=== PATIENT | female | born 2005 | race Two or more races ===

== ENCOUNTER 2025-08-13 13:37 | Outpatient (AMB) | payer BC, SELFPAY ==
--- OUTSIDE RECORDS SUMMARY | 2025-08-13 13:51 | XMS_ITS | Encounter Summary ---
Author Organization [facility] Address [address] [place] [address] Phone Care Team Providers Care Still Tender Name Role Phone Denae Landis MD Primary Care Provider [phone] Encounter Details Date Type Department Care Team (Late st Contact Info) Description 07/22/2025 Results Follow-Up [facility] [address] [address] Paige Galo [place] [address] [place] [address] Social History Tobacco Use Types Packs/Day Years Used Date Smoking Tobacco: Never Smokeless Tobacco: Never Alcohol Use Standard Drinks/Week Comments Yes 0 (1 standard drink = 0.6 oz pur e alcohol) occasionally Hunger/Food Answer Date Recorded In the last 12 months, did y ou or your family ever eat less than you felt you should because there wasn't enough money for food? No 07/15/2025 Stable Housing Answer Date Recorded Are you worried that in the next 2 months you may not have stable housing? No 07/15/2025 Transportation Concerns Answer Date Rec orded In the last 12 months, have you or your family ever had to go without healthcare because you didn't have a way to get there? No 07/15/2025 Hazards in Home Answer Date Recorded Think about the place you li ve. Do you have problems with any of the following? Pests (mice or roaches), mold, no/not working smoke detectors, water leaks, no window guards. No 2024 Financing Utilities Answer Date Recorde d In the last 12 months, has t he electric, gas, oil, or water company threatened to shut off your services in your home? No 07/15/2025 Safety at Home Answer Date Recorded Are you or your family worried about feeling saf e in your home? No 07/15/2025 Outside Support Answer Date Recorded Do you feel that you need mo re support from other people or programs to help you care for yourself or your family? No 07/15/2025 Understanding Health Concerns Answer Da te Recorded Do you need help understandi ng your or your child's healthcare needs (diagnosis, medications, plan, etc.)? No 07/15/2025 Financing Health Concerns Answer Date R ecorded In the last 12 months, was t here a time when your child needed to see a doctor or get medications or supplies but could not because of cost? No 07/15/2025 Missing School or Work Answer Date Rich rded Did you or your child miss s chool or work because of a health problem that could have been avoided? No 07/15/2025 Child Education Answer Date Recorded Do you have concerns about y our/your child's learning or behavior in school, preschool, or daycare? No 07/15/2025 Comments No Sex and Gender Information Value Date Recorded Sex Assigned at Female 09/03/2023 11:21 AM EDT Legal Sex Female 5:10 PM EDT Gender Identity Female 06/29/2020 8:44 AM EDT Sexual Orientation Straight 09/03/2023 11 :21 AM EDT documented as of this encounter Plan of Treatment Not on file documented as of this encounter Visit Diagnoses Not on filedocumented in this encounter Care Teams Still Tender Relationship Specialty Start Date End Date Denae Landis MD [address] [place] [address] CATHERINE Carey [address] PCP - General 06/21/17 documented as of this encounter
--- OUTSIDE RECORDS SUMMARY | 2025-08-13 13:51 | XMS_ITS | Encounter Summary ---
Author Organization [facility] Address [address] [place] [address] Phone Care Team Providers Care Press Machine Operator Name Role Phone Denae Landis MD Primary Care Provider [phone] Encounter Details Date Type Department Care Team (Late st Contact Info) Description 02/16/2013 Documentation [facility] [place] [address] [place] [address] Family Medicine, Physician [address] [place], [place] [phone] Social History Tobacco Use Types Packs/Day Years Used Date Smoking Tobacco: Never Assessed Comments Unknown Sex and Gender Information Value Date Recorded Sex Assigned at Female 09/03/2023 11:21 AM EDT Legal Sex Female 5:10 PM EDT Gender Identity Female 06/29/2020 8:44 AM EDT Sexual Orientation Straight 09/03/2023 11 :21 AM EDT documented as of this encounter Plan of Treatment Not on file documented as of this encounter Visit Diagnoses Not on filedocumented in this encounter Care Teams Press Machine Operator Relationship Specialty Start Date End Date Denae Landis MD [address] [place] [address] CATHERINE Carey [address] PCP - General 06/21/17 documented as of this encounter
--- OUTSIDE RECORDS SUMMARY | 2025-08-13 13:51 | XMS_ITS | Encounter Summary ---
Author Organization [facility] Address [address] [place], [place] [id number] Phone Care Team Providers Care Project Administrative Assistant Name Role Phone Denae Landis MD Primary Care Provider [phone] Reason for Visit * Reason Onset Date Comments Laceration 08/13/2025 Encounter Details Date Type Department Care Team (Late st Contact Info) Description 08/13/2025 Telephone [facility] [address] [place] [address] Cristian Millard LPN [address] [place] [address] Laceration Social History Tobacco Use Types Packs/Day Years [...] t he electric, gas, oil, or water [employer] threatened to shut off your services in [...] AM EDT documented as of this encounter Miscellaneous Notes * Telephone Encounter - Cristian Millard LPN - 08/13/2025 1:09 PM EDT Pt is calling, she states that she cut her finger on a can and it hasn't stopped bleeding. She is unsure how long the cut is but says that it is deep. She washed it with soap and water and is applying pressure. Last Tdap was 08/30/16. Instructed pt to go to ER or urgent care as we don't do sutures here. documented in this encounter Plan of Treatment Not on file documented as of this encounter Visit Diagnoses Not on filedocumented in this encounter Care Teams Project Administrative Assistant Relationship Specialty Start Date End Date Denae Landis MD [address] [place] [address] CATHERINE Carey [id number] PCP - General 06/21/17 documented as of this encounter
--- OUTSIDE RECORDS SUMMARY | 2025-08-13 13:51 | XMS_ITS | Encounter Summary ---
Author Organization [facility] Address [address] [place] [address] Phone Care Team Providers Care Warp Bleaching Vat Tender Name Role Phone Denae Landis MD Primary Care Provider [phone] Encounter Details Date Type Department Care Team (Late st Contact Info) Description 07/03/2010 Documentation [facility] [place] [address] [place] [address] Family Medicine, Physician [address] [place], [place] [phone] Social History Tobacco Use Types Packs/Day Years [...] on filedocumented in this encounter Care Teams Warp Bleaching Vat Tender Relationship Specialty Start Date End Date Denae Landis MD [address] [place] [address] CATHERINE Carey [address] PCP - General 06/21/17 documented as of this encounter
--- OUTSIDE RECORDS SUMMARY | 2025-08-13 13:51 | XMS_ITS | Encounter Summary ---
Author Organization [facility] Address [address] [place] [address] Phone Care Team Providers Care Culinary Intern Name Role Phone Denae Landis MD Primary Care Provider [phone] Encounter Details Date Type Department Care Team (Late st Contact Info) Description 07/03/2010 Documentation [facility] Family Medicine [address] [place] [address] Family Medicine, Physician [address] [place], [place] [phone] Social History Tobacco Use Types Packs/Day Years [...] on filedocumented in this encounter Care Teams Culinary Intern Relationship Specialty Start Date End Date Denae Landis MD [address] [place] [address] CATHERINE Carey [address] PCP - General 06/21/17 documented as of this encounter
--- OUTSIDE RECORDS SUMMARY | 2025-08-13 13:51 | XMS_ITS | Encounter Summary ---
Author Organization [facility] Address [address] [place] [address] Phone Care Team Providers Care Bathing Suit Maker Name Role Phone Denae Landis MD Primary Care Provider [phone] Encounter Details Date Type Department Care Team (Late st Contact Info) Description 08/24/2011 Documentation [facility] [place] Family Medicine [address] [place] [address] Family Medicine, Physician [address] [place], [place] [phone] Social History Tobacco Use Types Packs/Day Years [...] on filedocumented in this encounter Care Teams Bathing Suit Maker Relationship Specialty Start Date End Date Denae Landis MD [address] [place] [address] CATHERINE Carey [address] PCP - General 06/21/17 documented as of this encounter
--- OUTSIDE RECORDS SUMMARY | 2025-08-13 13:51 | XMS_ITS | Encounter Summary ---
Author Organization [facility] Address [address] [place] [address] Phone Care Team Providers Care Claim Representative Name Role Phone Denae Landis MD Primary Care Provider [phone] Encounter Details Date Type Department Care Team (Late st Contact Info) Description 04/26/2016 Documentation [facility] [place] Family Medicine [address] [place] [address] Family Medicine, Physician [address] [place] [phone] Social History Tobacco Use Types Packs/Day Years [...] on filedocumented in this encounter Care Teams Claim Representative Relationship Specialty Start Date End Date Denae Landis MD [address] [place] [address] CATHERINE Carey [address] PCP - General 06/21/17 documented as of this encounter
--- OUTSIDE RECORDS SUMMARY | 2025-08-13 13:51 | XMS_ITS | Clinical Summary ---
Author Organization [facility] Address [address] [place] [address] Phone Care Team Providers Care Hand Cultivator Name Role Phone Denae Landis MD Primary Care Provider [phone] Denae Landis MD Unavailable [phone] Denae Landis MD Unavailable [phone] Medications * This document contains information received from the source organization and may not represent a complete record from that organization. sertraline (Zoloft) 25 mg tablet Dose: 25 mg, Dose Amount: 1 tab, PO, daily, Dispense Quantity: 30 tab, Refills: 1, Entered: 09/17/22 18:42:00 [facility]/pharmacy #[id number] 09/17/2022 Active Social History Tobacco Use Types Packs/Day Years Used Date Smoking Tobacco: Never Assessed Comments Unknown Sex and Gender Information Value Date Recorded Sex Assigned at Not on file Legal Sex Female 4:12 AM EDT Gender Identity Not on file Sexual Orientation Not on file Plan of Treatment Not on file Care Teams Hand Cultivator Relationship Specialty Start Date End Date Denae Landis MD [address] [place] [address] PCP - General 04/07/21 Denae Landis MD [address] [place] [address] PCP - Insurance PCP 04/07/21 Denae Landis MD [address] [place] [address] CATHERINE Carey [address] PCP - Clinical PCP 04/07/21
--- OUTSIDE RECORDS SUMMARY | 2025-08-13 13:51 | XMS_ITS | Encounter Summary ---
Author Organization [facility] Address [address] [place] [address] Phone Care Team Providers Care Business Editor Name Role Phone Denae Landis MD Primary Care Provider [phone] Encounter Details Date Type Department Care Team (Late st Contact Info) Description 04/08/2014 Documentation [facility] [place] Family Medicine [address] [place] [address] Family Medicine, Physician [address] [place], [place] [phone] Social History Tobacco Use Types Packs/Day Years [...] on filedocumented in this encounter Care Teams Business Editor Relationship Specialty Start Date End Date Denae Landis MD [address] [place] [address] CATHERINE Carey [address] PCP - General 06/21/17 documented as of this encounter
--- OUTSIDE RECORDS SUMMARY | 2025-08-13 13:51 | XMS_ITS | Encounter Summary ---
Author Organization [facility] Address [address] [place] [address] Phone Care Team Providers Care Basket Person Name Role Phone Denae Landis MD Primary Care Provider Encounter Details Date Type Department Care Team (Late st Contact Info) Description 07/03/2010 Documentation [facility] [place] Family Medicine [address] [place] [address] Family Medicine, Physician [address] [place], [place] [phone] Social History Tobacco Use Types Packs/Day Years [...] on filedocumented in this encounter Care Teams Basket Person Relationship Specialty Start Date End Date Denae Landis MD [address] [place] [address] CATHERINE Carey [address] PCP - General 06/21/17 documented as of this encounter
--- OUTSIDE RECORDS SUMMARY | 2025-08-13 13:51 | XMS_ITS | Encounter Summary ---
Author Organization [facility] Address [address] [place] [address] Phone Care Team Providers Care Rn Mds Name Role Phone Denae Landis MD Primary Care Provider [phone] Encounter Details Date Type Department Care Team (Late st Contact Info) Description 06/27/2017 Conversion Encounter [facility] [place] [address] [place] [address] Social History Tobacco Use Types Packs/Day Years [...] on filedocumented in this encounter Care Teams Rn Mds Relationship Specialty Start Date End Date Denae Landis MD [address] [place] [address] PCP - General 06/21/17 documented as of this encounter
--- OUTSIDE RECORDS SUMMARY | 2025-08-13 13:51 | XMS_ITS | Clinical Summary ---
Author Organization [facility] Address [address] [place] [id number] Phone Care Team Providers Care Ultrasound Applications Specialist Name Role Phone Denae Landis MD Primary Care Provider [phone] Allergies Active Allergy Reactions Criticality Noted Date Comments Apple Juice 10/03/2020 Positive allergy testing Food Anaphylaxis High 09/12/2017 Carrot--had scratchy throat and blood blisters on lips; no difficulty breathing or swallowing [place] Flavoring Agent (Non-Screening) 10/03/2020 Oral allergy syndrome Medications EPINEPHrine 0.3 MG/0.3ML injection syringeIndications :Allergic reaction to food, sequela Inject into muscle immediately for signs of anaphylaxis AND call 911. Repeat if symptoms worsen/recur or if uncertain medicine was given 2 each 1 02/14/20 23 Active Additional Information Patient not taking.Reported on 04/25/2024 norgestimate-ethin yl estradiol 0.25-35 MG-MCG per tablet 12/29/19 24 Active cetirizine (ZyrTEC Allergy) 10 MG tablet Take 10 mg by mouth. 01/28/20 25 Active Montelukast Sodium (SINGULAIR PO) Take by mouth. 01/28/20 25 Active cetirizine 10 MG tabletIndications: Seasonal allergic rhinitis, unspecified trigger Take 1 tablet (10 mg total) by mouth daily. 90 tablet 1 02/14/20 23 025 Discontinu ed(Duplica te order) montelukast (Singulair) 10 MG tabletIndications: Mild persistent asthma without complication Take 1 tablet (10 mg total) by mouth nightly. 90 tablet 1 02/14/20 23 025 Discontinu ed(Duplica te order) montelukast 4 MG chewable tablet TAKE 1 TABLET BY MOUTH EVERYDAY AT BEDTIME 02/04/20 24 025 Discontinu ed(Duplica te order) ibuprofen 600 MG tablet TAKE 1 TABLET BY MOUTH EVERY 6 TO 8 HOURS NEEDED 11/16/19 25 025 Discontinu ed(Therapy completed) ibuprofen 800 MG tablet TAKE 1 TABLET (800 MG TOTAL) BY MOUTH EVERY 8 HOURS NEEDED FOR MILD OR MODERATE PAIN 05/05/20 25 025 Discontinu ed(Therapy completed) ondansetron ODT [address] 1 TABLET (4 MG TOTAL) UNDER THE TONGUE EVERY 8 (EIGHT) HOURS IF NEEDED FOR NAUSEA OR VOMITING. 05/05/20 25 025 Discontinu ed(Therapy completed) azithromycin 250 MG tabletIndications: Pneumonia of right lower lobe due to infectious organism Take 2 tablets (500 mg total) by mouth daily for 1 day, THEN 1 tablet (250 mg total) daily for 4 days. 6 tablet 07/22/20 Active Problems Problem Noted Date Diagnosed Date Paresthesia of right arm 05/31/2025 Assessment & Plan (05/31/2025 5:12 PM EDT): Suspect irritation of nerve from traumatic blood draw. Discussed sx relief; return to office if new sx develop or if sensation does not resolve on its own over the next 2-3 weeks. Allergic reaction to food 09/25/2018 Overview (09/28/2019): Has epi pen; avoids carrots Wears glasses 09/16/2017 Overview (09/28/2019): Has contacts and follow up planned in November but given discrepancy today mom will call Assessment & Plan (03/08/2022 10:37 AM EDT): Has appointment coming up soon for new rx Assessment & Plan (08/21/2018 9:02 AM EDT): Has another appt coming up end of the year and will likely upgrade glasses then; has contacts which are more updated Rx Assessment & Plan (09/16/2017 2:19 PM EST): Advised to follow up with eye doctor as soon as possible since its been awhile and poor eyesight in one eye Mild intermittent asthma without complication Overview (09/28/2019): Uses preventive meds for allergies and asthma during spring and fall but not summer or winter Assessment & Plan (07/15/2025 8:41 AM EDT): On preventive meds but just for allergies; no asthma symptoms for years; does not have an inhaler--hasn't had for years Assessment & Plan (09/03/2023 10:43 AM EDT): Taking singulair 10 mg daily during spring and fall only; hasn't had problems with asthma in awhile but singulair really helps her allergies Assessment & Plan (03/08/2022 10:36 AM EDT): Doing well on singulair and zyrtec; no changes Assessment & Plan (03/27/2021 8:37 AM EDT): Doing very well on montelukast and zyrtec; has appointment tomorrow with clearing hand for follow up ; hasn't needed albuterol in a couple of years Assessment & Plan (10/03/2020 1:30 PM EST): Taking monelukast, cetirizine and Flonase; hasn't needed inhaler in over a year Assessment & Plan (07/22/2020 8:30 AM EDT): Has been doing very well over quarantine; will restart zyrtec and singulair now since fall is starting; follow up if any difficulties Assessment & Plan (01/22/2020 11:27 AM EDT): Spring is the worst time for her; didn't need any meds over the fall 2018 this year; no need for rescue meds at all; so recommended starting zyrtec, flonase and singulair daily now; then start flovent IF gets a cough or concerns Assessment & Plan (09/28/2019 4:35 PM EST): Takes flovent and singulair during fall and spring so off now and doing well; will restart those 2 and allergy meds come December to be prepared for the spring Assessment & Plan (09/18/2019 11:34 AM EST): Stable; no issues right now Assessment & Plan (03/05/2019 4:40 PM EDT): Taking montelukast, zyrtec and flonase; will restart patanol soon ; doing well Assessment & Plan (11/24/2018 1:33 PM EST): Doing well on Singulair and Zyrtec; Restart Flonase mid-january; follow up here in February; consider flovent at that time Assessment & Plan (08/21/2018 12:04 PM EDT): Has been doing well off Flovent and just taking allergy meds and Singulair So would continue all 3 for now --Flonase, Zyrtec and Singulair Once allergy season/fall is over, could gradually discontinue allergy meds and see how she does Follow up in 3 months to recheck ADHD, but also check her asthma Assessment & Plan (12/12/2017 8:23 AM EST): Restart Flovent if coughing returns in the spring with her allergies despite using allergy meds Assessment & Plan (09/16/2017 1:58 PM EST): Still taking Flovent everyday and doing well; better than before; seen in August and restarted on flovent; hasn't needed rescue inhaler Attention deficit hyperactiv ity disorder (ADHD), combined type 06/27/2012 Assessment & Plan (03/27/2021 8:36 AM EDT): Reports school is going well; just started back in person so she will let me know if she wants to consider restarting medication Assessment & Plan (10/04/2020 8:36 AM EST): Stopped the Vyvanse because it was helping her stay focused but was worse for her appetite Off all meds; school could be better; a lot of struggle to stay focused; had tried concerta years ago with side effects; adderall and vyvanse were tried with significant side effects; will try strattera (wasn't covered last year but will try again); if not would then consider guanfacine; advised follow up in 1-2 months but asked mom to call me next week with update since just starting at the first starting dose of atomoxetine; if doing ok next week, would then go up to the full dose Assessment & Plan (08/01/2020 4:43 PM EDT): Discussed options with Nika and her mom by zoom meeting; don't want to use Adderall XR because it decreased her appetite and led to body image issues; so will try Vyvanse 30 mg daily and see if this will help her symptoms but not affect her appetite; to call me jackie if any problems; recheck in 1 month; if sees nothing helping in the next 2 weeks, mom can call and I'll increase her to 40 mg Assessment & Plan (07/22/2020 8:29 AM EDT): Off all meds for now; didn't like how much the stimulants affected her weight; feels better at her current weight; didn't do well on guanfacine either; hopefully doing remote learning will be easier to stay on task; if she needs to consider something further, perhaps atomoxetine will be helpful; she will let me know Assessment & Plan (09/28/2019 4:34 PM EST): Doing ok on Adderall XR 5 mg daily but no effect on her focusing; eats okay on it but not helping focusing; so will add guanfacine 1 mg ER for now; mom to call in a week and will increase by 1 mg ER each week until desired effect; target range for her is 3-6 mg total Assessment & Plan (09/21/2019 4:22 PM EST): Still getting very poor appetite with 10 mg addereall XR; so agree with decreasing to 5 mg adderall XR for now; if doing ok on that dose but inadequate for her symptom control, mom will call me in a week and I will add on guanfacine ER 1 mg daily to start; follow up at her PE in about 2 weeks Assessment & Plan (09/11/2019 12:10 PM EDT): Reviewed issues at length; not having good effects with the Adderall XR--feels too many side effects; had tried Concerta in the past and did not agree with her at all So reviewed options; will treat with strattera But also had her and mom fill out scared form and then reassessed; see below Assessment & Plan (03/06/2019 4:59 PM EDT): Taking adderall xr 15 mg daily; 7 days a week ecept school breaks; doing very well; taking honor classes next year! Continue same and follow up at in August Assessment & Plan (11/24/2018 1:33 PM EST): Doing well with current dosing; continue same Adderall XR 15 mg daily; recheck 3 months; mom's gerson shows pretty good control; will send in the teacher one Assessment & Plan (08/21/2018 8:54 AM EDT): Still taking Adderall XR 15 mg 7 days a week and doing fine; keeps her focused well; no ill effects per Nika Assessment & Plan (12/12/2017 8:22 AM EST): Doing very well on Adderall XR 15 mg now--increased a couple of months ago and doing better on higher dose Lost 2 lbs but overall is doing well and has had good growth over the year Follow up in 3-6 months depending on how she's doing; mom will keep track Assessment & Plan (09/16/2017 2:13 PM EST): suboptimal control on current dose of 10mg, so will increase Adderall XR to 15 mg daily Call me with any concerns Otherwise follow up in 2 months for recheck Allergic rhinitis 04/30/2011 Assessment & Plan (07/15/2025 8:41 AM EDT): Takes singulair and zyrtec seasonally; seen by clearing hand Assessment & Plan (09/03/2023 10:43 AM EDT): Takes zyrtec and singulair daily seasonally spring and fall Assessment & Plan (12/06/2022 9:28 AM EST): Not on cetirizine or montelukast right now; just uses seasonally Assessment & Plan (10/03/2020 1:34 PM EST): Saw clearing hand-had testing done-found to have allergies to carrots, apples, peaches; and egg/milk possibly -so going for blood work but wondered if those 2 (egg/milk) were false positive; a lot of environmental allergens too; will follow up with JOSEPHINE in 6 months Assessment & Plan (08/21/2018 8:54 AM EDT): Still taking Flonase and Zyrtec and Singulair; but still some runny nose Recommended Zyrtec in the morning and then extra dose of Benadryl at night Assessment & Plan (12/12/2017 8:22 AM EST): Plans to restart nasal spray, antihistamine and allergy eye drops in the spring Assessment & Plan (09/16/2017 1:58 PM EST): Still taking flonase; zyrtec and patanol seasonally Resolved Problems Problem Noted Date Diagnosed Date Resolved Date Hip pain, chronic, right 09/03/202302/2025 Assessment & Plan (09/03/2023 11:00 AM EDT): Really hip popping on right side for years but then causes pain for a couple of days after it happens; will start with xray to evaluate hip joint; if continues, will send to ortho for evaluation Gastroesophageal reflux dise ase without esophagitis 12/06/2022 09/03/2023 Assessment & Plan (12/06/2022 9:28 AM EST): Symptoms she describes certainly seem typical for acid reflux; recommended avoidance of certain foods and drinks and avoid eating late at night; would recommend pepcid 20 mg bid for 2 weeks; follow up if not improving Marijuana use 07/12/2022 09/03/2023 Assessment & Plan (07/17/2022 5:54 PM EDT): Patient has been without any cannabis use x 1 week now. Very scared to use again after this experience with severe vomiting, abd pain, nausea after cannabis use. Would like to stay off it forever. Gave lots of encouragement re this new development and offered additional support. Assessment & Plan (07/12/2022 10:02 AM EDT): Strongly discouraged use and why; could be reason for her vomiting and nausea; says she plans to quit-last use was Saturday which I told her was good-to hopefully avoid going forward Panic attacks 07/12/2022 09/03/2023 Assessment & Plan (07/17/2022 5:56 PM EDT): Received some useful strategies in ER, and discussed a few more today. She will be seeking care - mother has numbers to call. Will also schedule follow up with PCP, Dr. Landis, to discuss. Assessment & Plan (07/12/2022 10:07 AM EDT): Describes yesterday having what sounds like a panic attack; asked about anxiety med-advised I don't treat with prn anxiety meds; that I recommend appointment with a therapist; she says she will consider that; I gave her the handout on anxiety to review from [facility];advised to try to increase exercise and reviewed ways to get her to improve her nutrition; obviously she didn't feel well this week because of the N/V and then now today with diarrhea (which is likely from not eating all week); so reviewed suggestions to help get her eating back to normal/types of foods/hydration/etc; can consider daily preventive med in the future for anxiety if these measures do not help; patient and dad in agreement Current episode of major dep ressive disorder without prior episode 10/17/2020 03/08/2022 Depressed mood 06/27/2020 03/08/2022 Overview (06/27/2020): 06/27/2020 (age 15 yr 0 mo): reports poor self esteem, difficulty with relationship with father. + Hx cutting x 1 last year, none since. . Vague SI, has thought about taking pills in the recent past. No current SI. PHQ9 22, GAD7 14 Assessment & Plan (10/04/2020 8:34 AM EST): Overall seems to be doing better; reports feeling a bit brighter; therapist really helping her Assessment & Plan (07/22/2020 8:28 AM EDT): Reports emotions are stable; no major change; started working with therapist and feels that will be helpful; denies darker thoughts; does not want any medication right now; wants to continue to work with therapist; will let me know if anything changes Assessment & Plan (06/27/2020 3:45 PM EDT): 06/27/2020 (age 15 yr 0 mo): contracts for safety, discussed with mother. Has appt with Jaylan in 2 days. Follow up with Dr. Landis as soon as she is available. May consider medication in the future. Anxiety disorder, unspecified 09/04/2019 03/08/2022 Assessment & Plan (03/27/2021 8:39 AM EDT): Reports feeling ok; occ symptoms but not a lot; unsure if she wants to restart with a therapist or not; unsure if she wants medication or not; told mom and patient that mcpap Dr. Mills recommended combo of Adderall and Remeron; of course I prescribe Adderall but not Remeron. So if she wants to use those medications, which I fully support, I would just need to hook her up with a psychiatrist (which I told her I can give her the # for [facility] for [facility]); mom will let me know if she wants me to either give her info about [facility], if she wants me to ask Dr. Brush to call her (she was the previous therapist who saw her), or if she wants me to have [facility] try to call her Assessment & Plan (10/03/2020 1:52 PM EST): Still seeing therapist and going very well Assessment & Plan (09/28/2019 6:01 PM EST): Has appointment next week with therapist here Assessment & Plan (09/21/2019 4:21 PM EST): Scared screen still markedly positive; has appointment coming up with therapist; hope for some improvement with that change/plan Assessment & Plan (09/11/2019 12:11 PM EDT): Scared form positive--42--certainly suggests comorbidity of anxiety along with adhd; discussed treatment--mom will make calls to get her back into therapy and let me know if she's having trouble with this Recheck in 3 weeks to discuss changes/new med for adhd and see how she's doing Acne vulgaris 03/05/2019 03/08/2022 Encounters Date Type Department Care Team Description 08/13/2025 Telephone [facility] [address] [place] [address] Cristian Millard LPN Laceration 07/22/2025 9:15 AM EDT Office Visit [facility] [address] [place] [address] Delia Rivera MD Pneumonia of right lower lobe due to infectious organism (Primary Dx); Encounter for laboratory testing for COVID-19 virus 07/22/2025 Results Follow-Up [facility] [address] [place] [address] Paige Galo MA 07/21/2025 Telephone [facility] [address] [place] [address] Castro Moctezuma RN Cough 07/20/2025 Results Follow-Up [address] [address] Denae Landis MD 07/15/2025 8:15 AM EDT Office Visit [address] [address] Denae Landis MD Well adult exam (Primary Dx); Need for vaccination; BMI 22.0-22.9, adult; Encounter for screening examination for chlamydial infection; Encounter for screening examination for sexually transmitted disease; Dietary counseling and surveillance; Exercise counseling; Mild intermittent asthma without complication; Seasonal allergic rhinitis, unspecified trigger; Attention deficit hyperactivity disorder (ADHD), combined type 06/01/2025 Results Follow-Up [address] [address] Paige Galo MA 05/31/2025 2:30 PM EDT Office Visit [address] [address] Elana Ward NP Pharyngitis, unspecified etiology (Primary Dx); Paresthesia of right arm 05/19/[address] [address] Kiya Lee [place] 20 year old letter sent. from Last 3 Months Immunizations Immunization Administration Dates Next Due COVID-19 Pfizer, nabeel-sucros e, 12+ years 03/08/2022 DTaP / Hep B / IPV 2005,2005, 005 DTaP 5 06/28/2009,12/27/2006 HPV Vaccine 9 Valent 03/25/2017,08/30/2016 Hep A, ped/adol 07/15/2007,12/27/2006 Hep B, ped/adol 2005 Hib (HbOC) 2005 Hib (PRP-T) 09/24/2006,2005,2005 IPV 06/28/2009 Influenza Split 08/27/2013,08/01/2012,08/31/2011 Influenza, injectable, quadrivalent 08/30/2016,1 Influenza, injectable, quadr ivalent, preservative free 09/03/2023,10/03/2022,09/09/2021,07/22,09/04/2019,08/21/2018,08/28/2017 ,08/24/2014 Influenza, injectable, trivalent 009,08/12/2008,08/14/2007,09/24,2005 Influenza, injectable, triva lent, preservative free 07/15/2025,09/18/2024 Influenza, intranasal, trivalent 08/03/2010,06/12 MMR 06/28/2009,06/28/2006 Meningococcal B Trumenba 07/15/2025,09/03/2023 Meningococcal Conj (Menactra) MCV4P 03/08/2022,1 Pneumococcal Conjugate 09/24/2006,2005,2005,08/30 Tdap 08/30/2016 Varicella 06/28/2009,06/28/2006 Family History Medical History Relation Name Comments Hyperlipidemia Mother Camille Obesity Mother Camille Heart disease Other Prostate cancer Other Thyroid disease Other Relation Name Status Comments Father Greg Alive Mother Camille Alive Mother: Migrain es, Hyperlipidemia, Obesity Other No family histo ry of Seizure disorder, No family history of Thrombophilia, Family history of Migraines, No family history of Heart disease, No family history of Strabismus, Family history of Cancer, lung, No family history of Developmental dislocation of hip, No family history of Diabetes mellitus, Family history of Asthma, Family history of Hyperlipidemia, No family history of *Heart Disease, No family history of *Sudden /NV under 55, Family history of ADD/ADHD, Family history of *Dental caries, No family history of Deafness, No family history of *CVA/Stroke, No family history of Sudden /NV under age 55, Family history of Obesity, No family history of CVA (Stroke) Social History Tobacco Use Types Packs/Day Years [...] t he electric, gas, oil, or water [employer] threatened to shut off your services in [...] Orientation Straight 09/03/2023 11 :21 AM EDT Last Filed Vital Signs Vital Sign Reading Time Taken Comments Blood Pressure 121/76 07/22/2025 9:24 AM EDT Pulse 94 07/22/2025 9:24 AM EDT Temperature 37.4 C (99.4 F) 07/22/2025 9:24 AM EDT Respiratory Rate 20 09/18/2019 11:09 AM EST Oxygen Saturation 98% 07/22/2025 9:24 AM EDT Inhaled Oxygen Concentration - - Weight 61.3 kg (135 lb 3.2 oz) 07/22/2025 9:24 A M EDT Height 165.1 cm (5' 5 ) 07/15/2025 8:28 AM EDT Body Mass Index 22.5 07/15/2025 8:28 AM EDT Plan of Treatment Health Maintenance Due Date Last Done Comments Hepatitis C Screening 2023 COVID-19 Vaccine (5 - 2024-2 6 season) 2025 11/29/2023, 03/08/2022, 04/25/2021, Additional history exists DTaP,Tdap,and Td Vaccines (7 - Td or Tdap) 08/30/2026 08/30/2016, 06/28/2009, 12/27/2006, Additional history exists Hepatitis B Vaccines Completed 2005, 2005, 2005, Additional history exists HIB Vaccines Completed 09/24/2006, 12/12, 2005, Additional history exists Pneumococcal Vaccine Completed 09/24/2006, 2005, 2005, Additional history exists Hepatitis A Vaccines Completed 07/15/2007, 12/27/19 07 IPV Vaccines Completed 06/28/2009, 12/12, 2005, Additional history exists MMR Vaccines Completed 06/28/2009, 06/28/2006 Varicella Vaccines Completed 06/28/2009, 06/28/2006 HPV Vaccines Completed 03/25/2017, 08/30/2016 Meningococcal Vaccine Completed 03/08/2022, 016 HIV Screening Completed 09/03/2023 Chlamydia and Gonorrhea Screening Discontinued 07/15/2025, 09/03/2023, 07/18/2022, Additional history exists Influenza Vaccines Completed 07/15/2025, 1 11/18/2023, 09/03/2023, Additional history exists Men B Vaccine Completed 07/15/2025, 09/03/2023 Procedures * Due to [facility] law, this organization might not be sharing sensitive test results. Procedure Name Priority Date/Time Associated Diagnosis Comments POCT COVID-19, INFLUENZA, AND RSV NUCLEIC ACID (AMPLIFIED PROBE) Routine 07/22/2025 10:24 AM EDT Encounter for laboratory testing for COVID-19 virus VAGINITIS PLUS PANEL (BV CV/TV,CHLAM/VICKY) Routine 07/15/2025 9:20 AM EDT Encounter for screening examination for chlamydial infection Encounter for screening examination for sexually transmitted disease BRIEF BEHAVIORAL ASSESSMENT - NORMAL(PSC,PHQ9,VAN DERBILT,ETC) Routine 07/15/2025 8:35 AM EDT Well adult exam POCT STREP A NUCLEIC ACID (AMPLIFIED PROBE) Routine 05/31/2025 4:51 PM EDT Pharyngitis, unspecified etiology from Last 3 Months Results * Due to [facility] law, this organization might not be sharing sensitive test results. * POCT COVID-19, Influenza, RSV Nucleic Acid (Amplified Probe) (07/22/2025 10:24 AM EDT) SARS-COV-2 Ag Immunoassay, POC NEGATIVE Negative [facility] Comment:SPC: PASS Influenza A Nucleic Acid Amplified Probe NEGATIVE Negative [facility] Comment:Flu A1: NEG, Flu A2: NEG, SPC: PASS Influenza B Nucleic Acid Amplified Probe NEGATIVE Negative [facility] Comment:SPC: PASS RSV NEGATIVE Negative [facility] Comment:SPC: PASS Internal Control Pass Pass Present [facility] Nasopharyngeal Swab (Nares) 07/22/2025 10:24 AM EDT 07/22/2025 10:24 AM EDT Narrative [facility] - 07/22/2025 10:24 AM EDT [email or web address] ([id number]), [facility] Lot: [id number], Expiry: [id number]: [email or web address] Testing Performed at [facility] [address] [facility], [place] [address] Marketing Assistant Manager: Katja Perez DO CLIA: [id number] us Delia Rivera MD POINT OF CARE TEST ORDERABLES Final Result [facility] [address] [place] [address] * Vaginitis Plus Panel DNA Probe (BV,CV/TV,CHLAM/VICKY) (07/15/2025 9:20 AM EDT) Atopobium vaginae Low - 0 Score [facility] BVAB 2 Low - 0 Score [facility] Megasphaera 1 Low - 0 Score [facility] Comment: Calculate total score by adding the 3 individual bacterial vaginosis (BV) marker scores together. Total score is interpreted as follows: Total score 0-1: Indicates the absence of BV. Total score 2: Indeterminate for BV. Additional clinical data should be evaluated to establish a diagnosis. Total score 3-6: Indicates the presence of BV. Jazzy albicans, NEAL Negative Negative [facility] Jazzy glabrata, NEAL Negative Negative [facility] Trich vag by NEAL Negative Negative [facility] Chlamydia Trachomatis, NEAL Negative Negative [facility] Neisseria gonorrhoeae, NEAL Negative Negative [facility] Swab (Vagina) 07/15/2025 9:2 0 AM EDT 07/15/2025 Comment:Vagina Narrative [facility] - 07/17/2025 7:05 AM EDT Test(s) 341924- Atopobium vaginae; 843622- BVAB 2; [id number]- Megasphaera 1 was developed and its performance characteristics determined by [facility]. It has not been cleared or approved by the Food and Drug Administration. Test(s) [id number]-Nomvzoq albicans, NEAL; [id number]-Yznaeaw glabrata, NEAL was developed and its performance characteristics determined by [facility]. It has not been cleared or approved by the Food and Drug Administration. Performed at: 01 - [address] [id number] Marketing Assistant Manager: Valery Padilla MD, Phone: [phone] Denae Landis MD LAB MICROBIOLOGY - GENERAL ORD ERABLES Final Result [facility] [address] [place] [address] * POCT Strep A Nucleic Acid (Amplified Probe) (05/31/2025 4:51 PM EDT) [facility] Strep A Nucleic Acid Amplified Probe Negative Negative, Non-Reactive , None Detected [facility] Swab (Throat) 05/31/2025 4:5 1 PM EDT Elana Ward NP POINT OF CARE TEST ORDERABLES Fi nal Result Performing Organization Address City/[facility] Co de Phone Number [facility] [address] [place] [address] from Last 3 Months or Most Recently Relevant to Health Maintenance Insurance [employer] BLUE CARD OUT OF STATE Care Teams Ultrasound Applications Specialist Relationship Specialty Start Date End Date Denae Landis MD [address] [place] [address] CATHERINE Carey [id number] PCP - General 06/21/17
--- OUTSIDE RECORDS SUMMARY | 2025-08-13 13:51 | XMS_ITS | Encounter Summary ---
Author Organization [facility] Address [address] [place], [place] [id number] Phone Care Team Providers Care Crts Name Role Phone Denae Landis MD Primary Care Provider [phone] Reason for Visit * Reason Comments Med Refill Encounter Details Date Type Department Care Team (Late st Contact Info) Description 08/06/2019 Refill [facility] [place] [address] [place] [address] Jerod Barlow MD Acute seasonal allergic rhinitis due to pollen Social History Tobacco Use Types Packs/Day Years Used Date Smoking Tobacco: Never Smokeless Tobacco: Never Alcohol Use Standard Drinks/Week Comments No 0 (1 standard drink = 0.6 oz pur e alcohol) Comments No Sex and Gender Information Value Date Recorded Sex Assigned at Female 09/03/2023 11:21 AM EDT Legal Sex Female 5:10 PM EDT Gender Identity Female 06/29/2020 8:44 AM EDT Sexual Orientation Straight 09/03/2023 11 :21 AM EDT documented as of this encounter Miscellaneous Notes * Telephone Encounter - Samanta Chapa LPN - 08/06/2019 7:18 AM EDT Refill request for Ceterizine. Last PE 08/21/18, has pending FU appt on 08/20/19 and PE on 10/15/19/CYNTHIA documented in this encounter Plan of Treatment Not on file documented as of this encounter Visit Diagnoses Diagnosis Acute seasonal allergic rhinitis due to pollen documented in this encounter Care Teams Crts Relationship Specialty Start Date End Date Denae Landis MD [address] [facility] [place] [address] PCP - General 06/21/17 documented as of this encounter
--- OUTSIDE RECORDS SUMMARY | 2025-08-13 13:51 | XMS_ITS | Encounter Summary ---
Author Organization [facility] Address [address] [place], [place] [phone] Phone Care Team Providers Care Weaving Professor Name Role Phone Denae Landis MD Primary Care Provider [phone] Encounter Details Date Type Department Care Team (Late st Contact Info) Description 07/20/2025 Results [facility] [place] [address] [place] [address] Denae Landis MD [address] [place] [address] Social History Tobacco Use Types Packs/Day Years [...] on filedocumented in this encounter Care Teams Weaving Professor Relationship Specialty Start Date End Date Denae Landis MD [address] [place] [address] CATHERINE Carey [id number] PCP - General 06/21/17 documented as of this encounter
--- OUTSIDE RECORDS SUMMARY | 2025-08-13 13:51 | XMS_ITS | Encounter Summary ---
Author Organization [facility] Address [address] [place] [address] Phone Care Team Providers Care Apprentice Pattern Maker Name Role Phone Denae Landis MD Primary Care Provider [phone] Encounter Details Date Type Department Care Team (Late st Contact Info) Description 02/04/2012 Documentation [facility] [place] [facility] [address] [place] [address] Family Medicine, Physician [address] [place], [place] [id number] Social History Tobacco Use Types Packs/Day Years [...] on filedocumented in this encounter Care Teams Apprentice Pattern Maker Relationship Specialty Start Date End Date Denae Landis MD [address] [place] [address] CATHERINE Carey [id number] PCP - General 06/21/17 documented as of this encounter
--- OUTSIDE RECORDS SUMMARY | 2025-08-13 13:51 | XMS_ITS | Clinical Summary ---
Author Organization [employer] Address [address] [place] [address] [address] [place] [address] Care Team Providers Care Rubber Flap Tuber Machine Operator Name Role Phone Unavailable Primary Care Provider Unavailabl e Immunizations Immunization Administration Dates Next Due Hep B, Unspecified 2005 Pfizer Covid-19 Vaccine 12+ 11/29/2023 Social History Tobacco Use Types Packs/Day Years Used Date Smoking Tobacco: Never Assessed Comments Unknown Sex and Gender Information Value Date Recorded Sex Assigned at Female 11/29/2023 1:44 PM EST Legal Sex Female 1:42 PM EST Gender Identity Female 11/29/2023 1:44 PM EST Sexual Orientation Straight 11/29/2023 1 :44 PM EST Plan of Treatment Health Maintenance Due Date Last Done Comments Chlamydia and Gonorrhea Screening 2005 Depression Screening 2005 HIV Screening 2005 SDOH Screening 2005 Disability Screening 2005 Hepatitis B Vaccines (2 of 3 - 3-dose series) 2005 2005 Alcohol/Substance Use Screening 2017 Tobacco Screening 2017 Family Planning (PISQ) 2020 HPV Vaccines (1 - 3-dose series) 2020 Meningococcal B Vaccine (1 o f 2 - Standard) 2021 Hepatitis C Screening 2023 DTaP/Tdap/Td Vaccines (1 - Tdap) 2024 COVID-19 Vaccine (4 - 2024-2 6 season) 2025 11/29/2023, 04/25/2021, 04/01/2021 Influenza Vaccine (#1) 2025 Zoster Vaccines (1 of 2) 2055 RSV Patients and Patients Aged 60 years or older (1 - 1-dose 75+ series) 2080 HIB Vaccines Aged Out No longer eligi ble based on patient's age to complete this topic Hepatitis A Vaccines Aged Out No long er eligible based on patient's age to complete this topic IPV Vaccines Aged Out No longer eligi ble based on patient's age to complete this topic Meningococcal Vaccine Aged Out No nicci yudith eligible based on patient's age to complete this topic Pneumococcal Vaccine: Pediatrics (0 to 5 Years) and At-Risk Patients (6 to 49) Years Aged Out No longer eligible b ased on patient's age to complete this topic RSV under 20 months Aged Out No longe r eligible based on patient's age to complete this topic Rotavirus Vaccines Aged Out No longer eligible based on patient's age to complete this topic Insurance [facility] [id number] , [address] [place] [address]
--- OUTSIDE RECORDS SUMMARY | 2025-08-13 13:51 | XMS_ITS | Encounter Summary ---
Author Organization [facility] Address [address] [place] [address] Phone Care Team Providers Care Hand Quilter Name Role Phone Denae Landis MD Primary Care Provider [phone] Encounter Details Date Type Department Care Team (Late st Contact Info) Description 02/10/2014 Documentation [facility] [place] [address] [place] [address] Family Medicine, Physician [address] [place], [place] [phone] Social History Tobacco Use Types Packs/Day Years [...] on filedocumented in this encounter Care Teams Hand Quilter Relationship Specialty Start Date End Date Denae Landis MD [address] [place] [address] CATHERINE Carey [id number] PCP - General 06/21/17 documented as of this encounter
[2025-08-13 14:03] VITALS: BP 114/66; PULSE 73; TEMP 36.7; O2SAT 99; BMI 22.0
--- NOTE | 2025-08-13 14:03 | MHC.OFFWIV ---
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 Patient states that she was opening a can to prepare something to eat when she caught her left thumb on the lid causing a laceration. Patient's most recent tetanus immunization was 2015. Patient states that she washed the cut out with soap and water and applied antibiotic ointment prior to coming for medical evaluation. Review of Systems Const All systems reviewed & are unremarkable except as noted in HPI and below Reports no additional complaints Musc Details: laceration left thumb; no additional injury Skin/Breast Details: laceration left thumb Psych Reports no additional complaints Endo Reports no additional complaints Aller/Immun Reports no additional complaints Physical Exam Vital Signs: Last Vital Signs Temp 98.0 F 08/13/25 14:03 Pulse 73 08/13/25 14:03 BP 114/66 08/13/25 14:03 Pulse Ox 99 08/13/25 14:03 Oxygen Delivery Method Room Air 08/13/25 14:03 BMI result Body Mass Index 22.0 Const General: cooperative, healthy appearing, comfortable, no acute distress, well developed, alert, awake and Physically active; No acute distress or ill appearing Nutritional Appearance: average body habitus Orientation/consciousness: patient oriented x3 Limitations: no limitations Skin Other: 0.5 cm curvilinear laceration palmar surface of the left distal thumb without involvement of the nail; no active bleeding, minimal depth, no evidence of a retained foreign body Neuro General: patient oriented x3 Extrem Other: ROM and sensation intact all digits of the left hand including thumb General: Yes full ROM, Yes capillary refill normal and Yes normal exam except as noted Psych Appearance: grossly normal Mental Status: mental status grossly normal Insight: Good insight present (Psych) Judgement: Good judgement present (Psych) Assessment & Plan Assessment & Plan (1) Laceration of left thumb: Comment: This laceration will not require advanced closure for a therapeutic outcome. Patient is instructed to continue applying antibiotic ointment twice daily and clean with soap and water at least 4 times daily. Code(s): S61.012A - Laceration without foreign body of left thumb without damage to nail, initial encounter Qualifiers: Encounter type: initial encounter Damage to nail status: without damage Foreign body presence: without foreign body Qualified Code(s): S61.012A - Laceration without foreign body of left thumb without damage to nail, initial encounter Plan: Return for any signs of infection including fevers, chills, redness, discharge from lesion or increased pain. No sutures or imaging are required at this time. Coding Level of Care Code Est Pt Level 3 (23994) Diagnoses Laceration of left thumb without foreign body without damage to nail, initial encounter S61.012A Encounter type: initial encounter Damage to nail status: without damage Foreign body presence: without foreign body Time Spent (min) 20
== END 2025-08-13 14:18 | disposition home or self-care (01) ==
PROVIDERS: Visit Provider Physician Assistant
DX: S61.012A Laceration without foreign body of left thumb without damage to nail, initial encounter (principal)